=== PATIENT | male | born 1990 | race Two or more races ===

== ENCOUNTER → 2018-03-29 | Emergency (ER) | payer MEDICARE, MEDICAID ==
[~2018-03-29] VITALS: Ht 180.3 cm; Wt 138.8 kg
[2018-03-29] VITALS (10 sets, daily range): BP systolic 123–158; BP diastolic 66–110
[~2018-03-29] MED LIST: Acetaminophen 500mg (ES) tab ORAL ONE; Albuterol ud Inhalation HHN ONE; Albuterol ud Inhalation ONE; Albuterol/Ipratropium 3ml neb HHN ONE; Ipratropium 0.02% Inh Soln 2.5ml UD HHN ONE; Ipratropium 0.02% Inh Soln 2.5ml UD HHN SCH; Ipratropium 0.02% Inh Soln 2.5ml UD ONE; LORazepam Inj 2mg/ml 1ml IV ONE; LORazepam Inj 2mg/ml 1ml ONE; Levalbuterol Inh UD 1.25mg/0.5ml HHN PRN; Solu-MEDROL 125mg Inj IVP ONE; Terbutaline 1mg/ml Inj SUBQ ONE; cefTRIAXone 1 GM in NS 55 ML IVPB ONE
--- NOTE | 2018-03-29 10:59 | Emergency Room Report ---
History of Present Illness General Chief Complaint: Dyspnea/Respdistress Source: Patient Present Illness HPI Patient is a 27-year-old male presented after increased difficulty breathing for approximately one day. Patient reports having fever to 102. Patient prior history of asthma. Patient states he takes albuterol. The patient reported having worsening difficulty breathing. He denied any leg pain or swelling. He reports having slight productive cough. Allergies: Coded Allergies: No Known Allergies (Unverified , 03/29/18) Patient History Reviewed Nursing Documentation: PMH: Agreed; PSxH: Agreed Review of Systems All Other Systems: negative except mentioned in HPI Physical Exam Vital Signs Date Time Temp Pulse Resp B/P (MAP) Pulse Ox O2 Delivery O2 Flow Rate FiO2 03/29/18 10:40 97.3 92 18 120/78 97 Room Air 97.3 Sp02 EP Interpretation: reviewed, normal General Appearance: alert, GCS 15, non-toxic, moderate distress, obese Head: atraumatic ENT: normal ENT inspection, hearing grossly normal, normal voice Neck: normal inspection, full range of motion, supple, no bony tend Respiratory: normal inspection, no retraction, rales, wheezing Cardiovascular #1: regular rate, rhythm, no edema Gastrointestinal: normal inspection, normal bowel sounds, non tender, soft, no guarding, no hernia Genitourinary: no CVA tenderness Musculoskeletal: normal inspection, back normal, normal range of motion Neurologic: normal inspection, alert, oriented x3, responsive, carpenter rough III-XII nml as tested, speech normal Psychiatric: normal inspection, judgement/insight normal, mood/affect normal Skin: normal inspection, normal color, no rash Medical Decision Making Diagnostic Impression: Primary Impression: Asthma exacerbation ER Course Patient presented for shortness of breath. Differential included but was not limited to anemia, pneumonia, pneumothorax, myocardial infarction, pericardial effusion, congestive heart failure, acidosis. Because of complexity of patient' s case laboratory testing and imaging studies were ordered.The patient was noted to have prior history of asthma. He was started on IV Solu-Medrol as well as IV magnesium. Is given breathing treatments with some improvement. Patient was noted to have some continued wheezing and difficulty with air movement. Chest x-ray one view read by radiology showed no acute disease. Laboratory study showed normal white blood count as well as normal. The patient was given IV Rocephin. Patient was discussed with Dr. Cesar Hernandez for capitated physician after insurance was unable to arrange a timely transfer. Labs Test 03/29/18 11:00 03/29/18 12:00 03/29/18 13:20 White Blood Count 9.6 K/UL (4.8-10.8) Red Blood Count 5.69 M/UL (4.70-6.10) Hemoglobin 16.2 G/DL (14.2-18.0) Hematocrit 47.1 % (42.0-52.0) Mean Corpuscular Volume 83 FL (80-99) Mean Corpuscular Hemoglobin 28.5 PG (27.0-31.0) Mean Corpuscular Hemoglobin Concent 34.5 G/DL (32.0-36.0) Red Cell Distribution Width 11.6 % (11.6-14.8) Platelet Count 307 K/UL (150-450) Mean Platelet Volume 6.9 FL (6.5-10.1) Neutrophils (%) (Auto) 74.5 % (45.0-75.0) Lymphocytes (%) (Auto) 14.8 % (20.0-45.0) Monocytes (%) (Auto) 7.0 % (1.0-10.0) Eosinophils (%) (Auto) 2.5 % (0.0-3.0) Basophils (%) (Auto) 1.2 % (0.0-2.0) D-Dimer 0.24 mg/L FEU (0.00-0.49) Sodium Level 135 MMOL/L (136-145) Potassium Level 3.8 MMOL/L (3.5-5.1) Chloride Level 101 MMOL/L (98-107) Carbon Dioxide Level 25 MMOL/L (21-32) Anion Gap 9 mmol/L (5-15) Blood Urea Nitrogen 8 mg/dL (7-18) Creatinine 0.8 MG/DL (0.55-1.30) Estimat Glomerular Filtration Rate > 60 mL/min (>60) Glucose Level 100 MG/DL (74-106) Calcium Level 9.1 MG/DL (8.5-10.1) Total Bilirubin 0.5 MG/DL (0.2-1.0) Aspartate Amino Transf (AST/SGOT) 22 U/L (15-37) Alanine Aminotransferase (ALT/SGPT) 44 U/L (12-78) Alkaline Phosphatase 103 U/L (46-116) Pro-B-Type Natriuretic Peptide 38 pg/mL (0-125) Total Protein 8.6 G/DL (6.4-8.2) Albumin 4.0 G/DL (3.4-5.0) Globulin 4.6 g/dL Albumin/Globulin Ratio 0.9 (1.0-2.7) Urine Color Yellow Urine Appearance Clear Urine pH 6.5 (4.5-8.0) Urine Specific Benge 1.015 (1.005-1.035) Urine Protein Negative (NEGATIVE) Urine Glucose (UA) Negative (NEGATIVE) Urine Ketones Negative (NEGATIVE) Urine Occult Blood Negative (NEGATIVE) Urine Nitrite Negative (NEGATIVE) Urine Bilirubin Negative (NEGATIVE) Urine Ictotest Negative Urine Urobilinogen Normal MG/DL (0.0-1.0) Urine Leukocyte Esterase Negative (NEGATIVE) EKG Diagnostic Results Rate: normal Rhythm: NSR ST Segments: no acute changes ASA given to the pt in ED: No Rhythm Strip Diag. Results EP Interpretation: yes Rhythm: NSR - 87, no PVC's, no ectopy Last Vital Signs Date Time Temp Pulse Resp B/P (MAP) Pulse Ox O2 Delivery O2 Flow Rate FiO2 03/29/18 10:40 97.3 92 18 120/78 97 Room Air 97.3 Status: improved Disposition: ADMITTED INPATIENT Condition: Stable Saleem Belcher MD Mar 29, 2018 10:59
[2018-03-29 11:31] LABS: BASOPHILS % (AUTO) 1.2 % (0.0-2.0); EOSINOPHILS % (AUTO) 2.5 % (0.0-3.0); HEMATOCRIT 47.1 % (42.0-52.0); HEMOGLOBIN 16.2 G/DL (14.2-18.0); LYMPHOCYTES % (AUTO) 14.8 % (20.0-45.0); MEAN CORPUSCULAR VOLUME 83 FL (80-99); NEUTROPHILS % (AUTO) 74.5 % (45.0-75.0); PLATELET COUNT 307 K/UL (150-450); RED BLOOD COUNT 5.69 M/UL (4.70-6.10); RED CELL DISTRIBUTION WIDTH 11.6 % (11.6-14.8); WHITE BLOOD COUNT 9.6 K/UL (4.8-10.8)
[2018-03-29 11:36] LABS: ANION GAP 9 mmol/L (5-15); BLOOD UREA NITROGEN 8 mg/dL (7-18); CALCIUM 9.1 MG/DL (8.5-10.1); CARBON DIOXIDE 25 MMOL/L (21-32); CHLORIDE 101 MMOL/L (98-107); CREATININE 0.8 MG/DL (0.55-1.30); POTASSIUM 3.8 MMOL/L (3.5-5.1); SODIUM 135 MMOL/L (136-145)
[2018-03-29 11:52] LABS: ALANINE AMINOTRANSFERASE 44 U/L (12-78); ALBUMIN/GLOBULIN RATIO 0.9 (1.0-2.7); ALKALINE PHOSPHATASE 103 U/L (46-116); ASPARTATE AMINO TRANSFERASE 22 U/L (15-37); BILIRUBIN,TOTAL 0.5 MG/DL (0.2-1.0)
--- NOTE | 2018-03-29 12:11 | Diagnostic Imaging Report ---
Indication: Shortness of breath, cough Technique: One view of the chest Comparison: none Findings: Lungs and pleural spaces are clear. Heart size is normal Impression: No acute process
[2018-03-29 12:13] LABS: APPEARANCE,URINE CLEAR; BILIRUBIN, URINE NEGATIVE (NEGATIVE); GLUCOSE, URINE (UA) NEGATIVE (NEGATIVE); KETONES,URINE NEGATIVE (NEGATIVE); LEUKOCYTE ESTERASE ,URINE NEGATIVE (NEGATIVE); NITRITE,URINE NEGATIVE (NEGATIVE); PH,URINE 6.5 (4.5-8.0); PROTEIN,URINE NEGATIVE (NEGATIVE); UROBILINOGEN,URINE NORMAL MG/DL (0.0-1.0)
[2018-03-29 12:19] LABS: COLOR,URINE YELLOW
--- NOTE | 2018-03-30 18:00 | Consultation ---
DATE OF CONSULTATION: 03/29/2018 INTERNAL MEDICINE CONSULTATION HISTORY OF PRESENT ILLNESS: This is a 27-year-old male, who came to the hospital with shortness of breath. The patient also reports fever. He reports a history of asthma. He has been taking his albuterol at home with no improvement. He was seen and worked up in the ER. X-ray of the chest was negative, however, there is a possibly of right lower lobe infiltrate. He received multiple breathing treatments and steroids in the emergency room. Initially, he was for admission, however on my assessment, the patient was found to be stable for transfer and contacted the on-call ed case manager and I have arranged transfer to contracted facility. PAST MEDICAL HISTORY: Asthma only. SURGERIES: None. HOME MEDICATIONS: Albuterol. ALLERGIES: None. REVIEW OF SYSTEMS: Denies any headaches, hematemesis, melena, or hematochezia. PHYSICAL EXAMINATION: GENERAL: Reveals a young male. VITAL SIGNS: Blood pressure 120/70, heart rate 84, respirations 18, and O2 saturation 96% on room air. HEENT: Unremarkable. CHEST: Showed bilateral rhonchi. ABDOMEN: Soft. NEUROLOGIC: Nonfocal. LABORATORY DATA: Lab testing shows normal CBC and BMP. X-ray of the chest as discussed above. IMPRESSION: Acute asthma. DISCUSSION: The patient at this time is stable for transfer. He has received antibiotics and steroids. I will arrange transfer. We will follow as needed. Cesar Hernandez M.D. DR: ASIM JOB#: [id number] CC:
--- NOTE | 2018-03-30 21:00 | Consultation ---
DATE OF CONSULTATION: 03/29/2018 INTERNAL MEDICINE CONSULTATION HISTORY OF PRESENT ILLNESS: This is a 27-year-old male, who came to the hospital with shortness of breath. The patient also reports fever. He reports a history of asthma. He has been taking his albuterol at home with no improvement. He was seen and worked up in the ER. X-ray of the chest was negative, however, there is a possibly of right lower lobe infiltrate. He received multiple breathing treatments and steroids in the emergency room. Initially, he was for admission, however on my assessment, the patient was found to be stable for transfer and contacted the on-call correctional counselor/case manager and I have arranged transfer to contracted facility. PAST MEDICAL HISTORY: Asthma only. SURGERIES: None. HOME MEDICATIONS: Albuterol. ALLERGIES: None. REVIEW OF SYSTEMS: Denies any headaches, hematemesis, melena, or hematochezia. PHYSICAL EXAMINATION: GENERAL: Reveals a young male. VITAL SIGNS: Blood pressure 120/70, heart rate 84, respirations 18, and O2 saturation 96% on room air. HEENT: Unremarkable. CHEST: Showed bilateral rhonchi. ABDOMEN: Soft. NEUROLOGIC: Nonfocal. LABORATORY DATA: Lab testing shows normal CBC and BMP. X-ray of the chest as discussed above. IMPRESSION: Acute asthma. DISCUSSION: The patient at this time is stable for transfer. He has received antibiotics and steroids. I will arrange transfer. We will follow as needed. Cesar Hernandez M.D. DR: ASIM JOB#: [id number] CC:
== END | disposition short-term general hospital (02) ==
LOC: EMR 11:16 → EDBEDREQ 15:35 → EDBEDREQSVC 15:35
DX: J45.901 Unspecified asthma with (acute) exacerbation (principal)
CPT/HCPCS: 36415; 71045; 80053; 81003; 83605; 83880; 85025; 85379; 87040; 94640; 94664; 99285; J0696; J2930; J7620